=== PATIENT | female | born 1945 | race Caucasian/White ===

== ENCOUNTER → 2016-06-17 | Outpatient (CLI) | payer OTHER, MEDICARE ==
--- NOTE | 2016-06-17 11:13 | CT ---
High-Resolution Chest CT, Without Contrast June 17, 2016 Indication: 70-year-old woman with recent pneumonia and cough. Technique: Axial high-resolution computed tomographic images obtained including inspiratory and expir atory 1.25 mm slice thickness images at 10-mm intervals. Prone axial images through the lung bases wi th inspiratory phase at 1.25 mm thickness at 10-mm intervals. Axial 2.5 mm images through the entire chest with inspiratory phase also obtained. No intravenous contrast utilized. Dose reduction techniqu es were utilized. Comparison: Two-view chest dated March 02, 2016. Findings: Moderate severe centrilobular emphysema is present in the upper and midlung zones with bila teral apical bullae formation. No fissural nodules or interlobar septal thickening. Minimal subpleura l tree-in-bud pattern is present in the right lower lobe characteristic of minimal asymmetric bronchi olitis. Diffuse mild peribronchial thickening is present without bronchiectasis. No endobronchial les ion or central mucous plugging. No significant air trapping on the excretory phase. No edema, confluent airspace consolidation, or suspicious pulmonary nodule. A probably benign round 4 mm noncalcified pulmonary nodule is present in the inferior aspect of the lingula (image 33 of serie s 6). Minimal bibasilar dependent atelectasis improves when the patient is placed in the prone positi on. The heart size is normal with three-vessel calcified coronary plaque and calcified aortic plaque. The thoracic aorta is normal caliber with mild calcified atheroma. No pericardial or pleural effusion. N o enlarged lymph node or mass throughout the axilla, mediastinum, pulmonary davey, or imaged portion o f the upper abdomen. Thoracic spine is demineralized with mild multilevel degenerative disk disease. No compression fracture or bone lesion. Small hiatal hernia. Impression: 1. Moderate severe centrilobular emphysema and chronic mild bronchitis. 2. No pulmonary fibrosis. 3. No residual pneumonia, mass, or lymphadenopathy. 4. Probably benign 4 mm noncalcified lingular nodule. Recommend follow -up noncontrast chest CT in 12 months to assure benignity. 5. Three-vessel calcified coronary plaque. A Follow-Up Required test result notification was sent via the [employer] service, 11:01:58 AM, 7, [employer] Message ID [id number].
== END ==
LOC: CIMAGING 09:22
PROVIDERS: ATTEND Family Medicine
DX: J43.2 Centrilobular emphysema (principal); J42 Unspecified chronic bronchitis; R91.1 Solitary pulmonary nodule; I25.83 Coronary atherosclerosis due to lipid rich plaque
CPT/HCPCS: 71250-PO

== ENCOUNTER 2016-08-01 15:52 | Emergency (ER) | payer OTHER, MEDICARE ==
[2016-08-01 16:14] VITALS: BP 151/53; PULSE 79; RESP 16; TEMP 97.9; O2SAT 92
[2016-08-01] MEDS ORDERED: OXYCODONE/APAP 5/325 TAB PO ONE (16:33)
[2016-08-01] MEDS ORDERED: IBUPROFEN 800 MG TAB PO ONE (16:33)
--- NOTE | 2016-08-01 16:37 | UCPHY ---
H & P Time Seen by Provider: 08/01/16 16:18 Patient Type: Established HPI/ROS: HPI Headache, sinus pressure. 71-year-old female by private vehicle. She reports having nasal congestion with sinus pressure developing last night clear rhinorrhea and a frontal headache with some photophobia. She has not had a fever. She has had sinus infections in the past which have required antibiotics. She has been taking Flonase with no relief. She reports this headache is similar to the headaches she has had in the past with her previous episodes of sinusitis. She reports that onset was about 3 hours prior to arrival it was gradual in onset. She also complains of bilateral ear pain. ROS: Constitutional: No fever, no chills. No weakness. Eyes: No discharge. No changes in vision. ENT: No sore throat. As above. Respiratory: Cough secondary to postnasal drip. No shortness of breath. Cardiac: No chest pain, no palpitations. Gastrointestinal: No abdominal pain, no vomiting, no diarrhea. Genitourinary: No hematuria. No dysuria or increased frequency with urination. Musculoskeletal: No back pain. No neck pain. No myalgias or arthralgias. Skin: No rashes. Neurological: As above. No focal weakness or altered sensation. Past medical history: Hysterectomy, orthopedic surgeries Social history: Here by herself. Nonsmoker. Physical Exam: General Appearance: Alert, no distress. This patient is responding to questions appropriately and in full sentences. This patient appears well- hydrated and well-nourished. Eyes: Pupils equal and round no pallor or injection. No lid edema, erythema or injection. Mild photophobia. No nystagmus. ENT, Mouth: Mucous membranes are moist. The pharyngeal tissues are unremarkable. No edema or swelling. No asymmetry suggestive of abscess. No erythema or exudates. The right external auditory canal and tympanic membrane are unremarkable on speculum exam. The left external auditory canal is unremarkable. The left tympanic membrane is mildly erythematous at the base 9: 00 a.m. position. This may be indicative of early otitis media. palpation over the maxillary and frontal sinuses. Respiratory: There are no retractions, lungs are clear to auscultation with good air movement bilaterally. Cardiovascular: Regular rate and rhythm. No murmur. Neurological: Motor sensory function is grossly intact. Cranial nerves are normal. Gait is normal. Skin: Warm and dry, no rashes. Musculoskeletal: Neck is supple and nontender. No pain on flexion of the neck. Extremities are symmetrical. All joints range without pain or impingement. Psychiatric: No agitation. No depression. Database: EKG: Imaging: CT scan of head without contrast: Minimal ethmoid sinusitis. Otherwise no acute pathology. Results were discussed with staff radiologist. Procedures: Emergency department course: After my evaluation she was given 600 mg of ibuprofen and 2 Percocet for pain control. She will be sent for CT imaging of her head. Her vital signs have been reviewed and are normal except for being moderately hypertensive. She is afebrile. Patient decline Percocet. 5:35 p.m., patient re-evaluated. Results of CT were discussed with her. She is now feeling much better. She feels comfortable going home and I feel she is safe for discharge. Plan will be to write her a prescription for amoxicillin. I explained that her condition is likely viral and she does not require an antibiotic. However, if her ear pain on the left side worsens she will have this prescription and be able to fill it. She is to follow up with her primary care physician early this week for re-evaluation. Return to Urgent Care precautions were discussed with her. All of her questions were answered. She was discharged in good condition. Differential Diagnosis: The differential diagnosis on this patient includes but is not limited to sinusitis, upper respiratory infection. Subarachnoid hemorrhage, cavernous sinus thrombosis, meningitis, encephalitis, temporal arteritis unlikely. This represents a partial list of diagnoses considered. These considerations are based on history, physical exam, past history, reassessment and diagnostic testing. Smoking Status: Light smoker Constitutional: Initial Vital Signs Temperature (C) 36.6 C 08/01/16 16:09 Heart Rate 79 08/01/16 16:09 Respiratory Rate 16 08/01/16 16:09 Blood Pressure 151/53 H 08/01/16 16:09 O2 Sat (%) 92 08/01/16 16:09 O2 Delivery Mode Room Air Allergies/Adverse Reactions: hydrocodone Allergy (Intermediate, Verified 08/01/16 16:07) Hives Home Medications: Medication Instructions Recorded Aspirin 81mg (OTC) 03/23/13 Atorvastatin Calcium [Lipitor 40 40 mg PO DAILY 03/23/13 mg (RX)] Iron 03/23/13 Lisinopril 5 mg PO 03/23/13 Metformin HCl 03/23/13 Temazepam 03/23/13 Actonel 03/24/14 Linzess 07/28/15 Amoxicillin Trihydrate 500 mg PO Q8 #21 cap 08/01/16 [Amoxicillin 500mg cap] Medical Decision Making - Data Points Medications Given: Discontinued Medications Ibuprofen (Motrin) 600 mg PO EDNOW ONE Stop: 08/01/16 16:34 Last Admin: 08/01/16 17:00 Dose: 600 mg Oxycodone/Acetaminophen (Percocet 5/325) 2 tab PO EDNOW ONE Stop: 08/01/16 16:34 Last Admin: 08/01/16 17:12 Dose: 2 tab Oxycodone/Acetaminophen (Percocet 5/325mg Prepack#4) 1 btl TAKEHOME EDNOW ONE Stop: 08/01/16 17:43 Last Admin: 08/01/16 17:58 Dose: 1 btl Departure - Departure Disposition: Home, Routine, Self-Care Clinical Impression: Sinusitis, Sinus headache Condition: Good Instructions: Sinusitis (ED) Additional Instructions: Read and follow provided instructions. Follow-up with your primary care physician in 1-2 days for re-evaluation as discussed. Take medication as prescribed. Fill prescription for amoxicillin if your pain worsens, or you develop a fever. Ibuprofen dosin mg every 6 hours with meals for the next 3 days only. [place]/Percocet dosin-2 every 4-6 [address] for [address] not drive on this medication. Return to the emergency department for worsening headache, fever, vomiting or other serious concerns. Referrals: Jeison Recinos MD [Primary Care Provider] - As per Instructions Prescriptions: Amoxicillin Trihydrate [Amoxicillin 500mg cap] 500 mg PO Q8 #21 cap - PQRS PQRS Measurement: 134: Depression screening and followup, PRIME MD-PHQ2 (12 years and older) Over the last 2 weeks, how often have you been bothered by any of the following problems? 1. Feeling down, depressed, or hopeless? 2. Little interest or pleasure in doing things? Answered no to both questions. 130: Documentation of medications. Reviewed all patient medications, doses, route and frequency. 226: Do you smoke? No. 47: 65 and older: Advanced care planning. Patient designates surrogate decision maker as family. 51: 18 years old and older with diagnosis of COPD, spirometry performance. NA 52: 18 years old and older with COPD and symptoms of COPD or FEV1<60% predicted prescribed a B Agonist. NA
[2016-08-01] MEDS ORDERED: OXYCODONE/APAP 5/325MG PREPACK#4 BTL TAKEHOME ONE (17:42)
== END 2016-08-01 18:03 | disposition home or self-care (01) ==
LOC: CED 15:52
DX: J32.9 Chronic sinusitis, unspecified (principal); R51 Headache; H92.03 Otalgia, bilateral; F17.200 Nicotine dependence, unspecified, uncomplicated
CPT/HCPCS: 70450; G0463

== ENCOUNTER → 2017-03-08 | Outpatient (CLI) | payer OTHER, MEDICARE | LOC: CIMAGING 09:02 | PROVIDERS: ATTEND Family Medicine | DX: Z12.31 Encounter for screening mammogram for malignant neoplasm of breast (principal) | CPT/HCPCS: G0202 ==

== ENCOUNTER → 2017-03-28 | Outpatient (CLI) | payer OTHER, MEDICARE | LOC: BHFA 14:00 | PROVIDERS: ATTEND Internal Medicine Cardiovascular Disease | DX: R01.1 Cardiac murmur, unspecified (principal) ==

== ENCOUNTER → 2017-07-18 | Outpatient (CLI) | payer OTHER, MEDICARE | LOC: CIMAGING 16:49 | PROVIDERS: ATTEND Family Medicine | DX: J43.9 Emphysema, unspecified (principal); R91.8 Other nonspecific abnormal finding of lung field | CPT/HCPCS: 71046-PO ==

== ENCOUNTER → 2017-08-26 | Outpatient (CLI) | payer OTHER, MEDICARE | LOC: CIMAGING 13:05 | PROVIDERS: ATTEND Family Medicine | DX: J43.9 Emphysema, unspecified (principal); R91.1 Solitary pulmonary nodule | CPT/HCPCS: 71250-PO ==

== ENCOUNTER → 2017-11-14 | Outpatient (CLI) | payer OTHER, MEDICARE | LOC: CIMAGING 14:14 | PROVIDERS: ATTEND Family Medicine | DX: M85.621 Other cyst of bone, right upper arm (principal) | CPT/HCPCS: 73060-PO ==

== ENCOUNTER → 2017-11-30 | Outpatient (CLI) | payer OTHER, MEDICARE | LOC: FIMAGING 11:50 | PROVIDERS: ATTEND Orthopaedic Surgery Sports Medicine | DX: M25.511 Pain in right shoulder (principal); M75.111 Incomplete rotator cuff tear or rupture of right shoulder, not specified as traumatic; M75.51 Bursitis of right shoulder; M75.81 Other shoulder lesions, right shoulder; M25.411 Effusion, right shoulder ==